=== PATIENT | male | born 1945 | race African-American/Black ===

== ENCOUNTER 2022-05-03 12:41 | Emergency (ER) | payer OTHER, MEDICARE ==
[2022-05-03 13:13] VITALS: BP 155/92
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
--- NOTE | 2022-05-03 14:19 | XRay Report ---
XR hand 3+V RT INDICATION / CLINICAL INFORMATION: hand pain. COMPARISON: None available. FINDINGS: BONES/JOINT(S): No acute fracture or subluxation. 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 No focal bone erosions or focal osteopenia to suggest inflammat ory arthropathy. SOFT TISSUES: No significant abnormality. ADDITIONAL FINDINGS: None. Signer Name: Eduardo Andrwe MD Signed: 05/03/2022 2:15 PM Workstation Name: Submittable
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
== END 2022-05-03 15:30 | disposition home or self-care (01) ==
LOC: ED 12:41
DX: S00.83XA Contusion of other part of head, initial encounter (principal); M79.18 Myalgia, other site; V87.7XXA Person injured in collision between other specified motor vehicles (traffic), initial encounter; Y93.89 Activity, other specified; Y92.488 Other paved roadways as the place of occurrence of the external cause; Y99.8 Other external cause status
CPT/HCPCS: 70450; 72125; 99283